=== PATIENT | female | born 1945 | race Caucasian/White ===

== ENCOUNTER 2021-05-27 16:20 | Inpatient (IN) | payer OTHER ==
[~2021-05-27] VITALS: Ht 162.6 cm; Wt 88.0 kg
[2021-05-27 18:05] LABS: HEMOGLOBIN 16.3 gm/dl (12.3-15.3); RED BLOOD COUNT 5.39 M/UL (4.00-5.10); WHITE BLOOD COUNT 17.4 K/UL (4.5-11.0)
[2021-05-27 18:12] LABS: BUN/CREATININE RATIO 11 (0-10)
[2021-05-27] MEDS ORDERED: LOPRESSOR 25 MG25 MG PO (23:06)
[2021-05-27] MEDS ORDERED: AMLODIPINE BESYL5 MG PO (23:06)
[2021-05-27] MEDS ORDERED: NITROGLYCERIN0.4 MG SL (23:07)
[2021-05-27] MEDS ORDERED: ESOMEPRAZOLE MA20 MG PO (23:08)
[2021-05-28 07:38] LABS: WHITE BLOOD COUNT 17.6 K/UL (4.5-11.0)
[2021-05-28 07:42] LABS: HEMOGLOBIN 13.7 gm/dl (12.3-15.3); RED BLOOD COUNT 4.71 M/UL (4.00-5.10)
[2021-05-29 06:26] LABS: HEMOGLOBIN 12.9 gm/dl (12.3-15.3); RED BLOOD COUNT 4.35 M/UL (4.00-5.10); WHITE BLOOD COUNT 15.6 K/UL (4.5-11.0)
--- NOTE | 2021-05-29 13:45 | NUR ---
Notified Dr. Bustillos that patient and her family had requested for General Surgery (Dr. Burroughs) to be consulted for a potential gastric procedure instead of having patient transfered to [facility].
[2021-05-30 07:39] LABS: HEMOGLOBIN 12.8 gm/dl (12.3-15.3); RED BLOOD COUNT 4.44 M/UL (4.00-5.10); WHITE BLOOD COUNT 14.1 K/UL (4.5-11.0)
[2021-05-31 09:24] LABS: HEMOGLOBIN 12.6 gm/dl (12.3-15.3); RED BLOOD COUNT 4.21 M/UL (4.00-5.10); WHITE BLOOD COUNT 12.2 K/UL (4.5-11.0)
[2021-05-31 09:40] LABS: BUN/CREATININE RATIO 19 (0-10)
[2021-06-01 07:07] LABS: HEMOGLOBIN 13.1 gm/dl (12.3-15.3); RED BLOOD COUNT 4.45 M/UL (4.00-5.10); WHITE BLOOD COUNT 10.1 K/UL (4.5-11.0)
[2021-06-01 07:47] LABS: BUN/CREATININE RATIO 14 (0-10)
[2021-06-02 03:44] LABS: HEMOGLOBIN 11.8 gm/dl (12.3-15.3); RED BLOOD COUNT 4.06 M/UL (4.00-5.10); WHITE BLOOD COUNT 9.8 K/UL (4.5-11.0)
[2021-06-02 04:29] LABS: BUN/CREATININE RATIO 13 (0-10)
[2021-06-02] MEDS ORDERED: PROTONIX 40 MG40 M1 PO (09:58)
== END 2021-06-02 12:35 | disposition home or self-care (01) | DRG 327 ==
LOC: ER1 16:20 → M/S 18:42 → CDU 18:42 → M/S 22:16
PROVIDERS: Emergency Medicine; Internal Medicine Infectious Disease; Physician Assistant; ADMIT Internal Medicine
PROC: 0D9670Z Drainage of Stomach with Drainage Device, Via Natural or Artificial Opening (ICD-10-PCS; 2021-05-27)
PROC: 0D160ZA Bypass Stomach to Jejunum, Open Approach (ICD-10-PCS; principal; 2021-05-31)
PROC: 0DH67UZ Insertion of Feeding Device into Stomach, Via Natural or Artificial Opening (ICD-10-PCS; 2021-05-31)
PROC: 3E0H76Z Introduction of Nutritional Substance into Lower GI, Via Natural or Artificial Opening (ICD-10-PCS; 2021-05-31)
DX: K31.1 Adult hypertrophic pyloric stenosis (principal); E87.0 Hyperosmolality and hypernatremia; R65.10 Systemic inflammatory response syndrome (SIRS) of non-infectious origin without acute organ dysfunction; Z20.822 Contact with and (suspected) exposure to COVID-19; K27.9 Peptic ulcer, site unspecified, unspecified as acute or chronic, without hemorrhage or perforation; E87.6 Hypokalemia; E86.0 Dehydration; I20.9 Angina pectoris, unspecified; E66.9 Obesity, unspecified; I10 Essential (primary) hypertension; K31.9 Disease of stomach and duodenum, unspecified; K21.9 Gastro-esophageal reflux disease without esophagitis; G47.33 Obstructive sleep apnea (adult) (pediatric); D36.7 Benign neoplasm of other specified sites; M19.90 Unspecified osteoarthritis, unspecified site; M79.7 Fibromyalgia; R32 Unspecified urinary incontinence; E11.9 Type 2 diabetes mellitus without complications; Z90.710 Acquired absence of both cervix and uterus; Z90.49 Acquired absence of other specified parts of digestive tract; Z98.890 Other specified postprocedural states; Z88.1 Allergy status to other antibiotic agents; Z88.2 Allergy status to sulfonamides; Z68.33 Body mass index [BMI] 33.0-33.9, adult
CPT/HCPCS: 36415; 70450; 71250; 74018; 80048; 80053; 81001; 82150; 82550; 82553; 82962; 83036; 83605; 83690; 83735; 84100; 84484; 85025; 86140; 87040; 87086; 93005; 96374; 96375; 99285; C9113; J0780; J2001; J2270; J2405; J2543; J2704; J2710; J3010; J3480; J7030; J7120; Q9968; U0002